=== PATIENT | female | born 1965 | race Caucasian/White ===

== ENCOUNTER → 2025-02-24 13:56 | Outpatient (CLI) | payer OTHER, SELFPAY ==
[2025-02-24 14:45] LABS: Cholesterol 286 mg/dL (140-199); HDL Cholesterol 87 mg/dL (40-60); LDL Cholesterol Calculated 181 mg/dL (<100); Triglycerides 89 mg/dL (35-150)
== END ==
PROVIDERS: Family Provider Family Medicine; PCP Family Medicine; Referring Provider Family Medicine; Visit Provider Family Medicine
DX: Z13.1 Encounter for screening for diabetes mellitus (principal); Z13.220 Encounter for screening for lipoid disorders
CPT/HCPCS: 36415; 80061; 83036

== ENCOUNTER 2025-07-07 07:30 | Day surgery (SDC) | payer OTHER, SELFPAY ==
[2025-07-07 07:56] VITALS: BP 128/77; PULSE 72; RESP 15; TEMP 36.4; O2SAT 100
[2025-07-07] MEDS: LACTATED RINGERS 1,000 ML 42 ML IV (08:04)
--- NOTE | 2025-07-07 08:34 | P.HP_ITS ---
History of Present Illness History of Present Illness Date Patient Seen: 07/07/25 Chief complaint: SDC Narrative: First screening colonoscopy PFSH Family History (Updated 11/06/16 @ 00:00 by Conversion Provider) Father Cancer Grandmother Cancer Grandmother Stroke Social History Smoking Status: Never smoker alcohol intake: current Meds Home Medications and Allergies Allergies Allergy/AdvReac Type Severity Reaction Status Date / Time No Known Drug Allergies Allergy Verified 07/07/25 07:53 Exam Vital Signs (past 8 hours): - 07/07/25 07:56 Temperature 97.6 F Pulse Rate 72 Respiratory Rate 15 Blood Pressure 128/77 Pulse Oximetry 100 Oxygen Delivery Method Room Air Oxygen Delivery Method Room Air Narrative Exam Narrative: Oropharynx free of lesions Chest clear to auscultation percussion Cardiac exam reveals no S3 or murmur Assessment & Plan Assessment & Plan narrative: For screening colonoscopy. Risks, benefits, alternatives have been explained. Time-Based Coding :: [TOTAL MINUTES] spent with patient and on the chart (including review of chart, obtaining history, exam, reviewing outside data, placing orders, documenting exam and treatment plan, and counseling patient) on [DATE]. 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
--- NOTE | 2025-07-07 08:35 | PM.OP.COLON ---
Operative Date/Time/Diagnoses Date of procedure: 07/07/25 Time of procedure: 09:11 Pre-op diagnosis: See indication and findings Post-op diagnosis: same Procedure & Clinicians Study performed: Colonoscopy Same procedure(s) as scheduled: Yes Indications: For screening colonoscopy Surgeon: Les Ramires Anesthesia Type: Other Procedure Notes Procedure in detail: After informed consent was obtained the patient was placed in left lateral decubitus position. The video colonoscope was introduced the rectum slowly advanced cecum. Preparation was good. On slow withdrawal mucosa was carefully examined. The scope was removed. The patient tolerated procedure well. Blood loss none Complications none Sedation mac Findings 1. Normal colonoscopy to cecum Patient will need follow-up colonoscopy in 10 years.
[2025-07-07 09:06] VITALS: BP 109/65; PULSE 84; RESP 13; TEMP 36.7; O2SAT 100
[2025-07-07 09:11] VITALS: BP 103/69; PULSE 87; RESP 19; O2SAT 100
[2025-07-07 09:16] VITALS: BP 114/74; PULSE 70; RESP 17; TEMP 36.6; O2SAT 100
[2025-07-07 09:18] VITALS: BP 108/68; PULSE 71; RESP 13; O2SAT 100
== END 2025-07-07 09:40 | disposition home or self-care (01) ==
PROVIDERS: PCP Family Medicine; Referring Provider Internal Medicine Gastroenterology; Visit Provider Internal Medicine Gastroenterology
PROC: 0DJD8ZZ Inspection of Lower Intestinal Tract, Via Natural or Artificial Opening Endoscopic (ICD-10-PCS; CPT 45378; principal; 2025-07-07 08:45)
DX: Z12.11 Encounter for screening for malignant neoplasm of colon (principal)
CPT/HCPCS: 45378; J2704; J7120

== ENCOUNTER → 2025-07-17 11:12 | Outpatient (CLI) | payer OTHER, SELFPAY ==
--- NOTE | 2025-07-17 11:13 | DI.MG.S_ITS ---
MM screening mammo BI: 07/17/2025. BI-RADS: 2 CLINICAL: 59-year old female for bilateral screening mammogram. Tyrer-Cuzick lifetime risk of 19.2%. No personal or first-degree family history of breast cancer. Current reported family history of breast cancer: maternal aunt. PRIOR EXAMS: 06/15/2022. MAMMOGRAPHY TECHNIQUE: 2D and 3D (tomosynthesis) digital mammographic views obtained, with additional images as needed for full coverage. Current study was also evaluated with a Computer Aided Detection (CAD) system. DENSITY D. The breasts are extremely dense, which lowers the sensitivity of mammography. MAMMOGRAPHY FINDINGS Bilateral: Typically-benign vascular calcifications noted. IMPRESSION: * No evidence of malignancy with benign findings. RECOMMENDATIONS Bilateral * Annual screening mammography. OVERALL ASSESSMENT CATEGORY BI-RADS-2: Benign. The [employer] recommends annual screening mammography beginning at age 40 for women with average risk of breast cancer. ELECTRONICALLY SIGNED: Darrle Bhandari M.D. on 07/17/2025 at 01:56:21 PM PT Interpreting Station ID: [id number]
== END ==
LOC: MAMMO 11:12
PROVIDERS: PCP Family Medicine; Referring Provider Family Medicine; Visit Provider Family Medicine
DX: Z12.31 Encounter for screening mammogram for malignant neoplasm of breast (principal); R92.343 Mammographic extreme density, bilateral breasts; Z80.3 Family history of malignant neoplasm of breast
CPT/HCPCS: 77063; 77067